=== PATIENT | male | born 2000 | race Caucasian/White ===

== ENCOUNTER 2023-09-10 18:42 | Inpatient (IN) | payer MEDICAID ==
[~2023-09-10] VITALS: Ht 165.1 cm; Wt 74.0 kg
[~2023-09-10 18:42] MED LIST: KEPP500 PO; PENI250T2 PO
[2023-09-10] MEDS: LEVETIRACETAM 1000MG PREMIX 100 ML IV ONE (19:23)
[2023-09-10] MEDS: OXYCODONE HCL/ACETAMINOPHEN 5/325MG TABLET PO ONE (19:24)
[2023-09-10 19:26] LABS: BASOPHILS % 0.3 % (0.0-2.0); EOSINOPHILS % 0.8 % (0.0-5.0); HEMATOCRIT. 44.9 % (42.0-52.0); HEMOGLOBIN. 14.8 g/dL (14.0-18.0); LYMPHOCYTES % 33.3 % (20.0-50.0); MEAN CORPUSCULAR HEMOGLOBIN 31.8 pg (28.0-32.0); MEAN CORPUSCULAR HGB CONC 33.1 g/dL (31.0-37.0); MEAN CORPUSCULAR VOLUME 96.2 fL (80.0-94.0); MEAN PLATELET VOLUME 10.4 fl (7.4-10.4); MONOCYTES % 7.3 % (2.0-8.0); NEUTROPHILS % 58.3 % (40.0-76.0); PLATELET 171 x1000/uL (130-400); RED BLOOD CELL COUNT 4.66 mill/uL (4.7-6.1); RED CELL DISTRIBUTION WIDTH 13.2 % (11.6-14.6); WHITE BLOOD COUNT 11.5 x1000/uL (4.5-11.0)
[2023-09-10 19:38] LABS: ALANINE AMINOTRANSFERASE 13 IU/L (10-49); ALBUMIN 4.9 g/dL (3.2-4.8); ASPARTATE AMINOTRANSFERASE 18 IU/L (<34); BILIRUBIN TOTAL 0.5 mg/dL (0.1-1.0); CARBON DIOXIDE 15 mEq/L (21-32); CHLORIDE 106 mEq/L (98-107); CREATINE KINASE 112 IU/L (46-171); CREATININE 1.3 mg/dL (0.6-1.3); ETHANOL BLOOD < 10 mg/dL (<10); GLUCOSE 155 mg/dL (70-105); POTASSIUM 3.2 mEq/L (3.5-5.1); PROTEIN TOTAL 8.1 g/dL (6.0-8.3); SODIUM 140 mEq/L (136-145); UREA NITROGEN BLOOD 12 mg/dL (9-23)
[2023-09-10 20:14] LABS: CLARITY URINE CLEAR (CLEAR); COLOR URINE YELLOW (YELLOW); GLUCOSE URINE NEGATIVE (NEGATIVE); KETONES URINE NEGATIVE (NEGATIVE); LEUKOCYTE ESTERASE URINE NEGATIVE (NEGATIVE); NITRITE URINE NEGATIVE (NEGATIVE); OCCULT BLOOD URINE 1+ (NEGATIVE); PH URINE 5.5 (4.5-8.0); PROTEIN URINE 1+ (NEGATIVE); SPECIFIC GRAVITY URINE 1.015 (1.005-1.030); UROBILINOGEN URINE 0.2 E.U./dL (0.2-1.0)
[2023-09-10 20:28] LABS: BACTERIA URINE NONE SEEN; HYALINE CASTS URINE 0-5 /lpf; RBC URINE NONE SEEN /hpf (0-2); SQUAMOUS EPITHELIAL CELL URINE 1+ /lpf (RARE/1+); WBC URINE 0-2 /hpf (0-2)
[2023-09-10 20:30] LABS: *AMPHETAMINES SCREEN URINE NEGATIVE (NEGATIVE); *BARBITURATES SCREEN URINE NEGATIVE (NEGATIVE); *BENZODIAZEPINES SCREEN URINE NEGATIVE (NEGATIVE); *COCAINE SCREEN URINE NEGATIVE (NEGATIVE); CANNABINOID URINE SCREEN PRESUMPTIVE POSITIVE (NEGATIVE); ECSTASY MDMA SCREEN URINE NEGATIVE (NEGATIVE); METHADONE URINE SCREEN Neg (NEGATIVE); OPIATES URINE SCREEN NEGATIVE (NEGATIVE); PHENCYCLIDINE URINE SCREEN NEGATIVE (NEGATIVE)
[2023-09-10] MEDS: POTASSIUM CHLORIDE 20MEQ/PACKET PO NR (21:36)
[2023-09-11 01:15] VITALS: BP 119/70; PULSE 87; RESP 16; TEMP 97.9
[2023-09-11] MEDS ORDERED: LORAZEPAM 4MG/ML INJ IV PRN (02:00)
[2023-09-11] MEDS ORDERED: ACETAMINOPHEN 325MG TABLET PO PRN (02:00)
[2023-09-11] MEDS ORDERED: LORAZEPAM 2MG/ML INJ IV PRN (02:15)
[2023-09-11 04:00] VITALS: BP 100/58; PULSE 78; RESP 20; TEMP 97.5
[2023-09-11 06:39] LABS: HEMATOCRIT 40.5 % (42.0-52.0); HEMOGLOBIN 13.5 g/dL (14.0-18.0); MEAN CORPUSCULAR HEMOGLOBIN 31.9 pg (28.0-32.0); MEAN CORPUSCULAR HGB CONC 33.4 g/dL (31.0-37.0); MEAN CORPUSCULAR VOLUME 95.5 fL (80.0-94.0); PLATELET 144 x1000/uL (130-400); RED BLOOD CELL COUNT 4.24 mill/uL (4.7-6.1); RED CELL DISTRIBUTION WIDTH 13.1 % (11.6-14.6); WHITE BLOOD COUNT 11.9 x1000/uL (4.5-11.0)
[2023-09-11 07:19] LABS: CALCIUM 8.9 mg/dL (8.7-10.4); CREATININE 1.6 mg/dL (0.6-1.3); POTASSIUM 4.1 mEq/L (3.5-5.1)
[2023-09-11 08:00] VITALS: BP 112/65; PULSE 76; RESP 20; TEMP 98.2
[2023-09-11] MEDS: LEVETIRACETAM 500MG TABLET PO SCH (08:57)
[2023-09-11] MEDS: PENICILLIN V POTASSIUM 250MG TABLET PO SCH (08:57)
[2023-09-11] MEDS ORDERED: HYDROCODONE/ACETAMINOPHEN 5/325MG TABLET PO PRN (09:15)
[2023-09-11] MEDS ORDERED: CLONIDINE 0.1MG TABLET PO PRN (09:15)
[2023-09-11] MEDS ORDERED: MAGNESIUM/ALUMINUM HYDROXIDE/SIMETHICONE 30ML UDC PO PRN (09:15)
[2023-09-11] MEDS: ONDANSETRON HCL 4MG/2ML INJ IV PRN (09:47)
[2023-09-11 11:08] LABS: CREATINE KINASE 278 IU/L (46-171)
[2023-09-11] MEDS: SODIUM CHLORIDE 0.9% 1,000 ML IV SCH (11:31)
[2023-09-11 12:00] VITALS: BP 116/64; PULSE 74; RESP 20; TEMP 98
[2023-09-11 16:00] VITALS: BP 119/63; PULSE 72; RESP 20; TEMP 97.8
[2023-09-11] MEDS: ENOXAPARIN 40MG/0.4ML SYR SUBCUT SCH (18:18)
[2023-09-11 20:34] VITALS: BP 103/70; PULSE 72; RESP 18; TEMP 97.6
[2023-09-11] MEDS ORDERED: LEVETIRACETAM 500MG TABLET PO SCH (21:00)
[2023-09-11] MEDS: LEVETIRACETAM 250MG TABLET PO SCH (21:35)
[2023-09-12] VITALS: BP 111/54; PULSE 77; RESP 18; TEMP 98.2
[2023-09-12 04:00] VITALS: BP 99/54; PULSE 67; RESP 18; TEMP 97.8
[2023-09-12 06:24] LABS: BASOPHILS % 0.4 % (0.0-2.0); EOSINOPHILS % 1.2 % (0.0-5.0); HEMATOCRIT. 39.2 % (42.0-52.0); HEMOGLOBIN. 13.4 g/dL (14.0-18.0); LYMPHOCYTES % 26.7 % (20.0-50.0); MEAN CORPUSCULAR HEMOGLOBIN 32.2 pg (28.0-32.0); MEAN CORPUSCULAR HGB CONC 34.3 g/dL (31.0-37.0); MEAN CORPUSCULAR VOLUME 94.1 fL (80.0-94.0); MEAN PLATELET VOLUME 10.4 fl (7.4-10.4); MONOCYTES % 11.8 % (2.0-8.0); NEUTROPHILS % 59.9 % (40.0-76.0); PLATELET 128 x1000/uL (130-400); RED BLOOD CELL COUNT 4.16 mill/uL (4.7-6.1); RED CELL DISTRIBUTION WIDTH 13.2 % (11.6-14.6); WHITE BLOOD COUNT 6.9 x1000/uL (4.5-11.0)
[2023-09-12 07:03] LABS: ALANINE AMINOTRANSFERASE 9 IU/L (10-49); ALBUMIN 3.9 g/dL (3.2-4.8); ASPARTATE AMINOTRANSFERASE 19 IU/L (<34); BILIRUBIN DIRECT 0.4 mg/dL (<=3.0); BILIRUBIN TOTAL 1.2 mg/dL (0.1-1.0); CALCIUM 8.1 mg/dL (8.7-10.4); CARBON DIOXIDE 23 mEq/L (21-32); CHLORIDE 108 mEq/L (98-107); CREATINE KINASE 228 IU/L (46-171); GLUCOSE 78 mg/dL (70-105); PHOSPHORUS 4.2 mg/dL (2.5-4.9); POTASSIUM 3.5 mEq/L (3.5-5.1); PROTEIN TOTAL 6.1 g/dL (6.0-8.3); SODIUM 140 mEq/L (136-145); THYROID STIMULATING HORMONE 0.85 uIU/mL (0.55-4.78); TROPONIN I HIGH SENSITIVITY 5 ng/L (3.0-53); UREA NITROGEN BLOOD 19 mg/dL (9-23)
[2023-09-12 07:26] LABS: CREATININE 2.1 mg/dL (0.6-1.3)
[2023-09-12 08:00] VITALS: BP 110/65; PULSE 75; RESP 18; TEMP 97.6
[2023-09-12] MEDS: PANTOPRAZOLE SODIUM 40 MG/VIAL IV SCH (09:37)
[2023-09-12 12:00] VITALS: BP 109/79; PULSE 65; RESP 18; TEMP 97.8
[2023-09-12 16:00] VITALS: BP 105/65; PULSE 61; RESP 18; TEMP 97
[2023-09-12 19:46] LABS: CREATININE URINE RANDOM 92.6 mg/dL
[2023-09-12 20:00] VITALS: BP 117/60; PULSE 63; RESP 20; TEMP 98.1
[2023-09-13] VITALS: BP 105/62; PULSE 64; RESP 20; TEMP 98.2
[2023-09-13 04:00] VITALS: BP 111/69; PULSE 60; RESP 19; TEMP 98.5
[2023-09-13 07:35] LABS: BASOPHILS % 0.3 % (0.0-2.0); EOSINOPHILS % 3.2 % (0.0-5.0); HEMATOCRIT. 36.8 % (42.0-52.0); HEMOGLOBIN. 12.6 g/dL (14.0-18.0); LYMPHOCYTES % 30.6 % (20.0-50.0); MEAN CORPUSCULAR HEMOGLOBIN 32.2 pg (28.0-32.0); MEAN CORPUSCULAR HGB CONC 34.3 g/dL (31.0-37.0); MEAN CORPUSCULAR VOLUME 93.9 fL (80.0-94.0); MEAN PLATELET VOLUME 10.4 fl (7.4-10.4); MONOCYTES % 12.4 % (2.0-8.0); NEUTROPHILS % 53.5 % (40.0-76.0); PLATELET 127 x1000/uL (130-400); RED BLOOD CELL COUNT 3.92 mill/uL (4.7-6.1); RED CELL DISTRIBUTION WIDTH 13.3 % (11.6-14.6); WHITE BLOOD COUNT 5.3 x1000/uL (4.5-11.0)
[2023-09-13 07:37] LABS: ALANINE AMINOTRANSFERASE 8 IU/L (10-49); ALBUMIN 3.7 g/dL (3.2-4.8); ASPARTATE AMINOTRANSFERASE 17 IU/L (<34); BILIRUBIN TOTAL 1.2 mg/dL (0.1-1.0); CALCIUM 8.1 mg/dL (8.7-10.4); CARBON DIOXIDE 22 mEq/L (21-32); CHLORIDE 113 mEq/L (98-107); CREATINE KINASE 372 IU/L (46-171); GLUCOSE 80 mg/dL (70-105); PHOSPHORUS 3.8 mg/dL (2.5-4.9); POTASSIUM 3.9 mEq/L (3.5-5.1); PROTEIN TOTAL 5.9 g/dL (6.0-8.3); SODIUM 142 mEq/L (136-145); UREA NITROGEN BLOOD 15 mg/dL (9-23)
[2023-09-13 07:39] LABS: CREATININE 1.4 mg/dL (0.6-1.3)
[2023-09-13 08:00] VITALS: BP 107/63; PULSE 68; RESP 20; TEMP 98.9
[2023-09-13 12:00] VITALS: BP 123/61; PULSE 63; RESP 20; TEMP 98.7
[2023-09-13] MEDS ORDERED: NALOXONE HCL 0.4MG/ML VIAL IV PRN (12:30)
[2023-09-13] MEDS: DEXT 5%/0.45% NACL 1000ML 1,000 ML IV SCH (12:33)
[2023-09-13 16:09] VITALS: BP 104/53; PULSE 73; RESP 18; TEMP 98.8
[2023-09-13 20:00] VITALS: BP 119/72; PULSE 66; RESP 18; TEMP 98.6
[2023-09-14 00:01] VITALS: BP 91/51; PULSE 71; RESP 18; TEMP 97.8
[2023-09-14 04:13] VITALS: BP 114/58; PULSE 53; RESP 18; TEMP 98.2
[2023-09-14 06:46] LABS: BASOPHILS % 0.5 % (0.0-2.0); EOSINOPHILS % 3.8 % (0.0-5.0); HEMATOCRIT. 35.5 % (42.0-52.0); HEMOGLOBIN. 12.3 g/dL (14.0-18.0); LYMPHOCYTES % 39.8 % (20.0-50.0); MEAN CORPUSCULAR HEMOGLOBIN 32.5 pg (28.0-32.0); MEAN CORPUSCULAR HGB CONC 34.7 g/dL (31.0-37.0); MEAN CORPUSCULAR VOLUME 93.6 fL (80.0-94.0); MEAN PLATELET VOLUME 10.6 fl (7.4-10.4); MONOCYTES % 11.6 % (2.0-8.0); NEUTROPHILS % 44.3 % (40.0-76.0); PLATELET 121 x1000/uL (130-400); RED BLOOD CELL COUNT 3.79 mill/uL (4.7-6.1); RED CELL DISTRIBUTION WIDTH 13.2 % (11.6-14.6); WHITE BLOOD COUNT 4.9 x1000/uL (4.5-11.0)
[2023-09-14 07:04] LABS: ALANINE AMINOTRANSFERASE 7 IU/L (10-49); ALBUMIN 3.5 g/dL (3.2-4.8); ASPARTATE AMINOTRANSFERASE 15 IU/L (<34); BILIRUBIN TOTAL 0.5 mg/dL (0.1-1.0); CALCIUM 7.9 mg/dL (8.7-10.4); CARBON DIOXIDE 24 mEq/L (21-32); CHLORIDE 112 mEq/L (98-107); CREATININE 1.3 mg/dL (0.6-1.3); GLUCOSE 117 mg/dL (70-105); PHOSPHORUS 4.4 mg/dL (2.5-4.9); POTASSIUM 3.4 mEq/L (3.5-5.1); PROTEIN TOTAL 5.6 g/dL (6.0-8.3); SODIUM 143 mEq/L (136-145); UREA NITROGEN BLOOD 11 mg/dL (9-23)
[2023-09-14 08:24] VITALS: BP 108/40; PULSE 58; RESP 20; TEMP 98.9
[2023-09-14] MEDS: POTASSIUM CHLORIDE 20MEQ TABLET SR PO NR (09:22)
[2023-09-14] MEDS: MAGNESIUM 2 G PREMIX 50 ML IV NR (10:22)
[2023-09-14 11:14] LABS: CREATINE KINASE 301 IU/L (46-171)
[2023-09-14 12:00] VITALS: BP 121/74; PULSE 63; RESP 20; TEMP 98.9
[2023-09-14] MEDS ORDERED: LEVE750T4 MT (15:29)
[2023-09-14 15:44] VITALS: BP 117/61; PULSE 65; TEMP 98.7; O2SAT 99
[2023-09-14 16:00] VITALS: BP 117/61; PULSE 59; PULSE 65; RESP 20; TEMP 98.4; TEMP 98.6
[2023-09-16 04:10] LABS: *CREATININE RANDOM URINE 96.2 mg/dL (Not Estab.); MICROALBUMIN RANDOM URINE 13.2 ug/mL (Not Estab.)
== END 2023-09-14 16:40 | disposition home or self-care (01) | DRG 53 ==
LOC: ER 18:42 → 7WST 23:25
PROVIDERS: ADMIT Internal Medicine; ATTEND Internal Medicine
PROC: 4A00X4Z Measurement of Central Nervous Electrical Activity, External Approach (ICD-10-PCS; principal; 2023-09-12)
DX: G40.909 Epilepsy, unspecified, not intractable, without status epilepticus (principal); N17.9 Acute kidney failure, unspecified; F12.929 Cannabis use, unspecified with intoxication, unspecified; I09.9 Rheumatic heart disease, unspecified; W19.XXXA Unspecified fall, initial encounter; Z95.1 Presence of aortocoronary bypass graft; Z95.2 Presence of prosthetic heart valve
CPT/HCPCS: 36415; 76770; 80048; 80053; 80076; 80305; 80320; 81003; 82043; 82550; 82570; 83735; 83935; 84100; 84145; 84300; 84443; 84484; 85025; 85027; 93970; 99285; C9113; J1650; J1953; J2060; J2405; J3475; J7030; G0480

== ENCOUNTER 2023-10-14 23:19 | Emergency (ER) | payer MEDICAID ==
[~2023-10-14] VITALS: Ht 170.2 cm; Wt 95.0 kg
[~2023-10-14 23:19] MED LIST changes: -KEPP500 PO; +LEVE750T4 MT
[2023-10-14 23:42] VITALS: BP 119/74; TEMP 97.8; O2SAT 100
[2023-10-14 23:46] VITALS: PULSE 74; RESP 16
[2023-10-14] MEDS ORDERED: PENI250T2 PO (23:47)
[2023-10-14] MEDS ORDERED: LEVE750T4 MT (23:47)
== END 2023-10-15 00:17 | disposition home or self-care (01) ==
LOC: ER 23:19
DX: R56.9 Unspecified convulsions (principal); I09.9 Rheumatic heart disease, unspecified; F19.90 Other psychoactive substance use, unspecified, uncomplicated; Z76.0 Encounter for issue of repeat prescription
CPT/HCPCS: 99281

== ENCOUNTER 2023-11-16 19:10 | Emergency (ER) | payer MEDICAID ==
[~2023-11-16] VITALS: Ht 180.3 cm; Wt 75.0 kg
[2023-11-16 19:17] VITALS: TEMP 97.9; O2SAT 98
[2023-11-16] MEDS: LEVETIRACETAM 1000MG PREMIX 100 ML IV ONE (19:45)
[2023-11-16 20:43] LABS: BASOPHILS % 0.1 % (0.0-2.0); EOSINOPHILS % 0.2 % (0.0-5.0); HEMATOCRIT. 41.3 % (42.0-52.0); LYMPHOCYTES % 7.5 % (20.0-50.0); MEAN CORPUSCULAR HEMOGLOBIN 32.2 pg (28.0-32.0); MEAN CORPUSCULAR HGB CONC 33.9 g/dL (31.0-37.0); MEAN CORPUSCULAR VOLUME 95.3 fL (80.0-94.0); MEAN PLATELET VOLUME 10.4 fl (7.4-10.4); MONOCYTES % 5.6 % (2.0-8.0); NEUTROPHILS % 86.6 % (40.0-76.0); PLATELET 168 x1000/uL (130-400); RED BLOOD CELL COUNT 4.33 mill/uL (4.7-6.1); RED CELL DISTRIBUTION WIDTH 13.9 % (11.6-14.6); WHITE BLOOD COUNT 11.9 x1000/uL (4.5-11.0)
[2023-11-16 20:45] LABS: CHLORIDE 112 mEq/L (98-107); POTASSIUM 3.9 mEq/L (3.5-5.1); SODIUM 141 mEq/L (136-145)
[2023-11-16 20:46] LABS: CALCIUM 9.7 mg/dL (8.7-10.4); CARBON DIOXIDE 24 mEq/L (21-32)
[2023-11-16 20:51] LABS: CREATININE 1.1 mg/dL (0.6-1.3); GLUCOSE 92 mg/dL (70-105); UREA NITROGEN BLOOD 9 mg/dL (9-23)
[2023-11-16] MEDS: LEVETIRACETAM 500MG TABLET PO ONE (20:56)
[2023-11-16] MEDS ORDERED: LEVE1000 MT (21:51)
[2023-11-16] MEDS: HYDROCODONE/ACETAMINOPHEN 5/325MG TABLET PO ONE (22:01)
[2023-11-16 22:02] VITALS: BP 116/68; PULSE 85; RESP 16
[2023-11-16] MEDS: HYDROCODONE/ACETAMINOPHEN 10/325MG TABLET PO ONE (22:02)
== END 2023-11-16 22:06 | disposition home or self-care (01) ==
LOC: ER 19:10
DX: R56.9 Unspecified convulsions (principal); F12.90 Cannabis use, unspecified, uncomplicated; Z98.890 Other specified postprocedural states
CPT/HCPCS: 80048; 85025; 36415; 99283; J1953; Z7610

== ENCOUNTER 2024-10-19 16:03 | Emergency (ER) | payer BC, MEDICAID ==
[~2024-10-19] VITALS: Ht 177.8 cm; Wt 77.0 kg
[~2024-10-19 16:03] MED LIST changes: +LEVE1000 MT
[2024-10-19 16:04] VITALS: TEMP 36.2
[2024-10-19] MEDS: LEVETIRACETAM 1000MG PREMIX 100 ML IV ONE (16:15)
[2024-10-19] MEDS: MORPHINE SULFATE 4 MG/ML INJ (FOR IV/IM USE) IV ONE (17:03)
[2024-10-19 17:18] LABS: HEMATOCRIT. 45.4 % (42.0-52.0); HEMOGLOBIN. 14.9 g/dL (14.0-18.0); MEAN CORPUSCULAR HEMOGLOBIN 32.6 pg (28.0-32.0); MEAN CORPUSCULAR HGB CONC 32.7 g/dL (31.0-37.0); MEAN CORPUSCULAR VOLUME 99.7 fL (80.0-94.0); MEAN PLATELET VOLUME 10.1 fl (7.4-10.4); PLATELET 214 x1000/uL (130-400); RED BLOOD CELL COUNT 4.56 mill/uL (4.7-6.1); RED CELL DISTRIBUTION WIDTH 14.6 % (11.6-14.6); WHITE BLOOD COUNT 16.5 x1000/uL (4.5-11.0)
[2024-10-19 17:19] LABS: DIFFERENTIAL COMMENT 1
[2024-10-19 17:28] LABS: CHLORIDE 108 mEq/L (98-107); POTASSIUM 3.8 mEq/L (3.5-5.1); SODIUM 142 mEq/L (136-145)
[2024-10-19 17:29] LABS: CALCIUM 9.4 mg/dL (8.7-10.4); CARBON DIOXIDE 21 mEq/L (21-32)
[2024-10-19 17:34] LABS: CREATININE 1.4 mg/dL (0.6-1.3); GLUCOSE 126 mg/dL (70-105); UREA NITROGEN BLOOD 13 mg/dL (9-23)
[2024-10-19 17:37] LABS: PLATELET ESTIMATE NORMAL
[2024-10-19 18:31] VITALS: TEMP 98.4
[2024-10-19] MEDS: MORPHINE SULFATE 4 MG/ML INJ (FOR IV/IM USE) IV STA (18:31)
[2024-10-19] MEDS: KETAMINE HCL 50 MG/ML 10ML IV ONE ×2 (18:50→19:56)
[2024-10-19] MEDS: PROPOFOL 200MG/20ML VIAL IV ONE ×3 (18:50→19:56)
[2024-10-19 19:59] VITALS: O2SAT 95
[2024-10-19 20:44] VITALS: BP 108/72; PULSE 90; RESP 17; O2SAT 98
[2024-10-19] MEDS ORDERED: IBUP-2029 MT (20:44)
[2024-10-19] MEDS ORDERED: LEVE1000 MT (20:44)
[2024-10-19] MEDS ORDERED: T3 PO (20:44)
[2024-10-19] MEDS: ONDANSETRON HCL 4MG/2ML INJ IV ONE (21:05)
== END 2024-10-19 21:24 | disposition home or self-care (01) ==
LOC: ER 16:03
DX: S42.92XA Fracture of left shoulder girdle, part unspecified, initial encounter for closed fracture (principal); S42.202A Unspecified fracture of upper end of left humerus, initial encounter for closed fracture; G40.909 Epilepsy, unspecified, not intractable, without status epilepticus; F12.90 Cannabis use, unspecified, uncomplicated; Z79.899 Other long term (current) drug therapy; Z98.890 Other specified postprocedural states; X58.XXXA Exposure to other specified factors, initial encounter; Y93.89 Activity, other specified; Y92.89 Other specified places as the place of occurrence of the external cause; Y99.8 Other external cause status
CPT/HCPCS: 80048; 85025; 36415; 73030; 23650; 96365; 96366; 96375; 99152; 99285; J1953; J3490; J2405; J2704; J2270; Z7610; A4565